=== PATIENT | female | born 1985 | race Caucasian/White ===

== ENCOUNTER 2017-12-06 16:35 | Inpatient (IN) | payer BC ==
[2017-12-06] MEDS ORDERED: BUTORPHANOL TARTRATE 1 MG/ML VIAL IVPB ONE (17:15)
[2017-12-06] MEDS ORDERED: PROMETHAZINE HCL 25 MG/1 ML VIAL IVPUSH ONE (17:15)
[2017-12-06] MEDS ORDERED: TUBERCULIN PPD 5 TU/0.1ML SYRINGE (IN PATIENT USE ONLY) ID ONE (17:30)
[2017-12-06] MEDS ORDERED: DINOPROSTONE 10 MG VAGINAL SUPPOSITORY VG ONE (17:30)
[2017-12-06 17:37] VITALS: BMI 29.2
--- NOTE | 2017-12-06 17:46 | HP ---
Past Medical History - Admission History of Present Illness: Pt is a 32 y/o with SIUP at 40.6 weeks gestation here for scheduled IOL. uncomplicated. Feeling occasional cramps otherwise no complaints. + FM, no VB/LOF. GBS positive. 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 Weeks Gestation by Dates: 40.6 ...EDC by Dates: 11/30/17 ...EDC by Sono: 11/30/17 Heme/Onc: No: Anemia Infectious Disease: No: HIV, MRSA Psych: No: Anxiety, Bipolar, Depression - Past Surgical History Past Surgical History: Yes: None Hx Myomectomy: No Hx Transabdominal Cerclage: No - Smoking History Smoking history: Never smoked Have you smoked in the past 12 months: No - Alcohol/Substance Use Hx Alcohol Use: No History of Substance Use: reports: None - Social History Usual Living Arrangement: Yes: With Spouse ADL: Independent History of Recent Travel: No Home Medications - Allergies Allergies/Adverse Reactions: Allergies Allergy/AdvReac Type Severity Reaction Status Date / Time No Known Allergies Allergy Verified 12/06/17 17:12 - Home Medications Home Medications: Ambulatory Orders Vitamins (Sjr) - 1 tab PO DAILY 12/06/17 Physical Exam - Maternity Vital Signs: Vital Signs Temperature 98.6 F 12/06/17 17:31 Pulse Rate 112 H 12/06/17 17:31 Respiratory Rate 18 12/06/17 17:31 Blood Pressure 113/74 12/06/17 17:31 O2 Sat by Pulse Oximetry (%) Constitutional: Yes: Well Nourished, No Distress, Calm Eyes: Yes: Conjunctiva Clear, EOM Intact HENT: Yes: Atraumatic, Normocephalic Neck: Yes: Supple, Trachea Midline Cardiovascular: Yes: Regular Rate and Rhythm Lungs: Clear to auscultation - Abdominal Exam/OB Number of Fetuses: Single Presentation: Vertex Contractions: Yes Regularity: Irregular Intensity: Mild Category: I Accelerations: Uniform Decelerations: None - Vaginal Exam/OB Vaginal Bleediing: No Dilatation (cm): 1.5 Effacement (%): 50 Amniotic Membrane Status: Intact Presentation: Vertex/Position Station: -2 - Physical Exam Psychiatric: Yes: Alert, Oriented Hemorrhage Risk Assessment - Risk Factors Medium Risk Factors: Yes: None High Risk Factors: Yes: None Risk Score: 1 Risk Level: Medium Risk Problem List - Problems (1) Post-dates Code(s): O48.0 - POST-TERM Qualifiers: Post-term type: 40-42 weeks gestation Qualified Code(s): O48.0 - Post-term (2) Positive GBS test Code(s): B95.1 - STREPTOCOCCUS, GROUP B, CAUSING DISEASES CLASSD ELSWHR Assessment/Plan 32 y/o with SIUP at 40.6 weeks, IOL for late term - AFVSS - FHTS cat 1 - IOL, cervidil placed, to remove in 12 hours then start pitocin - GBS positive, will start ampicillin once active or ROM
[2017-12-06] MEDS ORDERED: AMPICILLIN - 2 GM in SODIUM CHLORIDE 100 ML IVPB ONE (18:00)
[2017-12-06] MEDS: DEXTROSE 5%-LACTATED RINGERS 1,000 ML IV SCH (18:10)
--- NOTE | 2017-12-06 18:29 | PN ---
Ante-Partal Exam - Subjective Subjective: FHR with 2 prolonged decelerations since cervidil placed. IV fluids started and position changed. Pt now currently on left side and FHR improved. Vital Signs: Vital Signs Temperature 98.8 F 12/06/17 18:00 Pulse Rate 101 H 12/06/17 18:00 Respiratory Rate 20 12/06/17 18:00 Blood Pressure 114/72 12/06/17 18:00 O2 Sat by Pulse Oximetry (%) Bleeding: No Headache: No Visual changes: No Right upper quadrant pain: No - Contractions Contractions: Yes Regularity: Regular Intensity: Mild/Mod - Exam during Labor Heart Rate: 130 Variability: Moderate Category: II Monitor Accelerations: Present Monitor Decelerations: Prolonged Exam: Vaginal Dilatation (cm): 2 Effacement (%): 50 Presentation: Vertex Station: -2 - Assessment/Plan Assessment/Plan: Cervidil removed at this time will continue to monitor FHRS with continuous monitoring if FHR ok will restart IOL with pitocin
[2017-12-06 20:06] LABS: BASO % 0.2 % (0-2.0); EOS % 0.3 % (0-4.5); HEMATOCRIT 36.5 % (32.4-45.2); LYMPH % 17.7 % (8-40); MCH 27.4 pg (25.7-33.7); MEAN PLT VOLUME 7.9 fl (7.5-11.1); MONO % 6.9 % (3.8-10.2); NEUT % 74.9 % (42.8-82.8); PLATELET COUNT 322 K/MM3 (134-434); RDW 14.3 % (11.6-15.6); WHITE BLOOD COUNT 11.8 K/mm3 (4.0-10.0)
[2017-12-06 20:16] LABS: INR 0.9 (0.82-1.09); PROTHROMBIN TIME (PATIENT) 10.2 SEC (9.98-11.88)
[2017-12-06 20:32] LABS: ANION GAP 7 (8-16); BLOOD UREA NITROGEN 11 mg/dL (7-18); CALCIUM 8.9 mg/dL (8.5-10.1); CHLORIDE 103 mmol/L (98-107); CO2 26 mmol/L (21-32); CREATININE 0.9 mg/dL (0.55-1.02); GLUCOSE,RANDOM 83 mg/dL (74-106); POTASSIUM 4.1 mmol/L (3.5-5.1); SODIUM 136 mmol/L (136-145)
[2017-12-07] MEDS ORDERED: BUTORPHANOL TARTRATE 1 MG/ML VIAL ONE ×2 (01:09)
[2017-12-07] MEDS ORDERED: PROMETHAZINE HCL 25 MG/1 ML VIAL ONE (01:10)
[2017-12-07] MEDS ORDERED: AMPICILLIN SODIUM 2 GM VIAL ONE ×2 (03:00→03:54)
--- NOTE | 2017-12-07 03:41 | PN ---
Ante-Partal Exam - Subjective Subjective: Pt s/p stadol/phenergan at approx 0115 am. Feeling some discomfort with contractions. Vital Signs: Vital Signs Temperature 98.7 F 12/07/17 02:00 Pulse Rate 73 12/07/17 03:00 Respiratory Rate 20 12/07/17 03:00 Blood Pressure 115/67 12/07/17 03:00 O2 Sat by Pulse Oximetry (%) Headache: No Visual changes: No Right upper quadrant pain: No - Contractions Contractions: Yes Regularity: Irregular Intensity: Mild/Mod - Exam during Labor Variability: Moderate Category: I Monitor Accelerations: Present Monitor Decelerations: None Exam: Vaginal Dilatation (cm): 3-4 Effacement (%): 90 Amniotic Membrane Status: Ruptured (AROM at this examination) Amniotic Fluid: Clear Presentation: Vertex Station: -1 - Assessment/Plan Assessment/Plan: 32 y/o with SIUP at 41 weeks, IOL for late term - FHTS cat 1 - IOL, s/p cervidil now with spontaneous contractions, AROM at this examination - GBS positive, continue ampicillin - continue active management, will start pitocin if no progress at next exam
[2017-12-07] MEDS ORDERED: SIMETHICONE 80 MG TAB.CHEW (FP) ONE (03:50)
[2017-12-07] MEDS: SIMETHICONE 80 MG TAB.CHEW (FP) PO PRN (03:50)
[2017-12-07] MEDS ORDERED: FENTANYL/BUPIVACAINE/NS/PF - PCEA - 50 ML DISP.SYRIN EP ONE ×4 (05:16→19:36)
[2017-12-07] MEDS: FENTANYL/BUPIVACAINE/NS/PF - PCEA - 50 ML DISP.SYRIN EP SCH (05:20)
[2017-12-07] MEDS ORDERED: NALOXONE HCL 0.4 MG/ML VIAL IVPUSH PRN (05:47)
[2017-12-07] MEDS ORDERED: AMPICILLIN SODIUM 1 GM VIAL ONE ×3 (06:58→23:33)
[2017-12-07] MEDS: AMPICILLIN - 1 GM in SODIUM CHLORIDE 100 ML IVPB SCH ×7 (07:00→23:30)
[2017-12-07] MEDS ORDERED: OXYTOCIN 15 UNITS/ LR 250 ML 15 UNIT/250 ML INFUS.BAG IVPB ONE (08:38)
[2017-12-07] MEDS ORDERED: OXYTOCIN 15 UNITS/ LR 250 ML 15 UNIT/250 ML INFUS.BAG IVPB SCH (08:45)
--- NOTE | 2017-12-07 08:59 | PN ---
Ante-Partal Exam - Subjective Subjective: Pt comfortable with epidural. Contractions have spaced out. Vital Signs: Vital Signs Temperature 98.7 F 12/07/17 07:00 Pulse Rate 90 12/07/17 08:45 Respiratory Rate 20 12/07/17 08:45 Blood Pressure 106/69 12/07/17 08:45 O2 Sat by Pulse Oximetry (%) 100 12/07/17 08:45 Bleeding: No Headache: No Visual changes: No Right upper quadrant pain: No - Contractions Contractions: Yes Regularity: Regular Monitor Mode: External - Exam during Labor Variability: Moderate Category: I Monitor Accelerations: Present Monitor Decelerations: None Exam: Vaginal Dilatation (cm): 4 Effacement (%): 90 Presentation: Vertex Station: -1 - Assessment/Plan Assessment/Plan: FHR Cat 1 NO cervical change since last exam to start pitocin continue ampicillin for GBS prophylaxis
[2017-12-07] MEDS ORDERED: OXYTOCIN 30 UNITS in 0.9% NS 30 UNIT/500 ML INFUS.BAG IVPB SCH (10:15)
[2017-12-07] MEDS: PRENATAL VITAMINS W/ FOLIC ACID TABLET (FP) PO SCH (11:05)
--- NOTE | 2017-12-07 19:04 | PN ---
Ante-Partal Exam - Subjective Subjective: Pt on pitocin and has epidural Vital Signs: Vital Signs Temperature 97.8 F 12/07/17 14:00 Pulse Rate 85 12/07/17 18:45 Respiratory Rate 18 12/07/17 18:45 Blood Pressure 114/70 12/07/17 18:45 O2 Sat by Pulse Oximetry (%) 95 12/07/17 18:45 Bleeding: No Headache: No Visual changes: No Right upper quadrant pain: No - Exam during Labor Category: I Monitor Accelerations: Present Monitor Decelerations: None Exam: Vaginal Dilatation (cm): 4-5 Effacement (%): 80 Amniotic Membrane Status: Ruptured Presentation: Vertex Station: 0
[2017-12-07] MEDS ORDERED: OXYTOCIN 20 UNITS in 0.9% NS 20 UNIT/1,000 ML INFUS.BAG IV ONE (21:45)
--- NOTE | 2017-12-08 03:02 | PN ---
Ante-Partal Exam - Subjective Subjective: Pt with pressure Vital Signs: Vital Signs Temperature 98.2 F 12/08/17 02:00 Pulse Rate 90 12/08/17 02:15 Respiratory Rate 20 12/08/17 02:15 Blood Pressure 117/78 12/08/17 02:15 O2 Sat by Pulse Oximetry (%) 100 12/08/17 02:15 - Contractions Monitor Mode: External - Exam during Labor Category: I Monitor Accelerations: Present Monitor Decelerations: None Exam: Vaginal Dilatation (cm): 9 Amniotic Membrane Status: Ruptured Presentation: Vertex - Assessment/Plan Assessment/Plan: 2nd stage of labor plan continue present management
--- NOTE | 2017-12-08 03:09 | PN ---
Ante-Partal Exam - Subjective Subjective: Pt had been pushing 1 1/2 hours with no progress EFM late decels failure to descend Plan repeat CS Vital Signs: Vital Signs Temperature 98.2 F 12/08/17 02:00 Pulse Rate 90 12/08/17 02:15 Respiratory Rate 20 12/08/17 02:15 Blood Pressure 117/78 12/08/17 02:15 O2 Sat by Pulse Oximetry (%) 100 12/08/17 02:15 Bleeding: No Headache: No Visual changes: No Right upper quadrant pain: No - Contractions Contractions: Yes Monitor Mode: External - Exam during Labor Category: II Monitor Accelerations: Present Monitor Decelerations: Late Exam: Vaginal Dilatation (cm): 10 Effacement (%): 100 Amniotic Membrane Status: Ruptured Presentation: Vertex Station: +1 - Assessment/Plan Assessment/Plan: Falure to Decend Cat 2 tracing - late decel with pushing Plan Willl do section
[2017-12-08] MEDS ORDERED: CITRIC ACID/SODIUM CITRATE 30 ML UNIT-DOSE CUP PO ONE (03:12)
[2017-12-08] MEDS ORDERED: oxyCODONE HCL 5 MG TABLET PO PRN ×2 (03:15)
[2017-12-08] MEDS ORDERED: METHYLERGONOVINE MALEATE 0.2 MG/1 ML AMP IM PRN (03:15)
[2017-12-08] MEDS ORDERED: WITCH HAZEL 50% (TUCKS) 40 PAD/JAR PAD TP PRN (03:15)
[2017-12-08] MEDS ORDERED: BENZOCAINE 20% 57 GM BOTTLE TP PRN (03:15)
[2017-12-08] MEDS ORDERED: diphenhydrAMINE HCL 25 MG CAPSULE (FP) PO PRN (03:15)
[2017-12-08] MEDS ORDERED: BENZOCAINE 28 GM HEMORRHOIDAL OINTMENT PR PRN (03:15)
[2017-12-08] MEDS ORDERED: SIMETHICONE 80 MG TAB.CHEW (FP) PO PRN (03:15)
[2017-12-08] MEDS ORDERED: IBUPROFEN 800 MG/8 ML IJ IVPB PRN (03:15)
[2017-12-08] MEDS ORDERED: morphine SULFATE/Preservative Free 0.5 MG/ML (1cc Syringe) ONE ×5 (03:42)
[2017-12-08] MEDS ORDERED: PROPOFOL 20 ML ONE (03:43)
[2017-12-08] MEDS ORDERED: SUCCINYLCHOLINE CHLORIDE 200 MG/10 ML VIAL ONE (03:43)
[2017-12-08] MEDS ORDERED: KETOROLAC TROMETHAMINE 30 MG/1 ML VIAL ONE (03:52)
[2017-12-08] MEDS ORDERED: ceFAZolin SODIUM 1 GM VIAL ONE (03:57)
[2017-12-08] MEDS ORDERED: SODIUM CHLORIDE 0.9% P/F 10 ML VIAL IJ ONE ×2 (03:57→04:05)
[2017-12-08] MEDS ORDERED: MIDAZOLAM HCL 2 MG/2 ML SINGLE DOSE VIAL ONE (04:06)
[2017-12-08] MEDS ORDERED: METOPROLOL TARTRATE 5 MG/5 ML VIAL ONE (04:09)
[2017-12-08] MEDS ORDERED: ePHEDrine SULFATE 50 MG/1 ML AMPULE ONE (04:15)
[2017-12-08] MEDS ORDERED: ONDANSETRON 4 MG/2 ML VIAL IVPUSH PRN (04:38)
--- NOTE | 2017-12-08 04:39 | OP ---
Operative Note - Note: Operative Date: 12/08/17 Pre-Operative Diagnosis: Failure to Descend Operation: Low transverse Section Findings: normal tubes and ovaries Post-Operative Diagnosis: Same as Pre-op Surgeon: Nallely Greenfield Detention Officer: Jonathon Melendez Anesthesiologist/DEDICATED REGIONAL DRIVER: José Luis Dickinson Anesthesia: Epidural Estimated Blood Loss (mls): 600 Operative Report Dictated: Yes
[2017-12-08] MEDS ORDERED: OXYTOCIN 20 UNITS in 0.9% NS 20 UNIT/1,000 ML INFUS.BAG IV ONE ×2 (05:19→07:53)
[2017-12-08 06:18] LABS: VENOUS PC02 46.9 mmHg (38-52); VENOUS PH 7.32 (7.32-7.42); VENOUS PO2 28.2 mmHg (28-48)
[2017-12-08] MEDS: D5W-LR W/ 20 UNITS OXYTOCIN 20 UNIT/1,000 ML INFUS.BAG IV SCH (07:55)
[2017-12-08] MEDS: PRENATAL VITAMINS W/ FOLIC ACID TABLET (FP) PO SCH (10:15)
[2017-12-08] MEDS: AMPICILLIN - 1 GM in SODIUM CHLORIDE 100 ML IVPB SCH (10:21)
[2017-12-08] MEDS: FENTANYL/BUPIVACAINE/NS/PF - PCEA - 50 ML DISP.SYRIN EP SCH (10:22)
--- NOTE | 2017-12-08 13:36 | OP ---
DATE OF OPERATION: 12/08/2017 PREOPERATIVE DIAGNOSIS: Failure to descend. OPERATION: Primary low-transverse section. POSTOPERATIVE DIAGNOSES: Failure to descend and live female infant. SURGEON: Nallely Greenfield MD ANALYSIS EVALUATOR: MADHURI Rosenbaum ( unavailable) ANESTHESIA: Epidural. ANESTHESIOLOGIST: . PROCEDURE: Patient was taken to the operating room, placed in the supine position, prepped and draped in the usual sterile fashion. After epidural anesthesia had been given, timeout was performed in accordance with hospital regulation. Pfannenstiel skin incision was made. Cautery was then used to go through the layers of the abdominal wall toward the fascia. Fascia was cut in midline and cautery was then used to open the fascia in smiling fashion. Zulma was then used to bluntly and sharply dissect the rectus muscle off the fascia. Muscle was split in the midline. Peritoneal cavity was then entered and carried upward and downward. Bladder retractor was then placed. Vesicouterine reflection was then entered and bladder was bluntly dissected out of the operative field. Scalpel was then used to make a low-transverse uterine incision. Incision was carried upward using bandage scissors. A live female infant was delivered in OT position. Nose and mouth suction performed. Shoulders were delivered without difficulty. Cord was clamped and cut, cord blood obtained. Placenta was manually extracted from the uterus. Cord pH obtained. Delayed cord clamping was done and infant was handed to the boxing machine operator. Hemostasis was achieved. Uterine incision was then closed using 0 Biosyn suture, 1st layer continuous locking, 2nd layer imbricating the 1st layer. Hemostasis was achieved using figure-of-8 sutures. Uterus interiorized. Abdominal cavity cleaned with clean lap pads. The peritoneum was then closed using 0 Biosyn suture in continuous fashion. Fascia was then closed using 0 Vicryl suture in 2 parts continuous. Subcutaneous was closed using 0 Biosyn suture. Skin was then closed using 3-0 Vicryl in subcuticular fashion. Wound was washed and dressed. Patient tolerated the procedure well, was taken to recovery in stable condition. Tubes and ovaries were noted to be normal. Abdominal sweep was done. ESTIMATED BLOOD LOSS: 600 mL. Rebekah TUBBS/[id number]
[2017-12-08] MEDS: DEXTROSE 5%-LACTATED RINGERS 1,000 ML IV SCH (17:59)
[2017-12-09] MEDS ORDERED: BISACODYL 10 MG SUPP.RECT PR PRN (03:15)
[2017-12-09] MEDS: IBUPROFEN 600 MG TABLET (FP) PO PRN ×3 (05:18→15:42)
[2017-12-09] MEDS: ACETAMINOPHEN 325 MG TABLET (FP) PO PRN ×3 (05:18→15:42)
[2017-12-09] MEDS: SIMETHICONE 80 MG TAB.CHEW (FP) PO PRN ×3 (05:19→15:42)
--- NOTE | 2017-12-09 07:13 | PN ---
Progress Note (SOAP) - Subjective Chief Complaint: Pt doing well - Current Medications Current Medications: Active Medications Acetaminophen (Tylenol -) 650 mg PO Q4H PRN PRN Reason: FEVER Last Admin: 12/09/17 05:18 Dose: 650 mg Benzocaine (Americaine 20% [place] -) 1 spray TP PRN PRN PRN Reason: PAIN Benzocaine (Americaine Ointment -) 1 applic LA PRN PRN PRN Reason: PAIN Bisacodyl (Dulcolax Suppository -) 10 mg LA PRN PRN PRN Reason: CONSTIPATION Diphenhydramine HCl (Benadryl -) 25 mg PO Q6H PRN PRN Reason: FOR ITCHING Dextrose/Lactated Ringer's (D5-Lr -) 1,000 mls @ 125 mls/hr IV ASDIR DEJA Last Admin: 12/08/17 17:59 Dose: 125 mls/hr Oxytocin/Sodium Chloride (Normal Saline+30 Units Oxytocin) 30 unit in 500 mls @ 1 mls/hr IVPB TITR DEJA; 0.06 UNIT/HR PRN Reason: Protocol Last Titration: 12/07/17 19:30 Dose: 0.36 unit/hr, 6 mls/hr Dextrose/Lactated Ringer's (Pitocin 20 Units In D5-Lr -) 20 unit in 1,000 mls @ 125 mls/hr IV ASDIR DEJA Last Admin: 12/08/17 07:55 Dose: 125 mls/hr Ibuprofen (Caldolor Injection -) 800 mg IVPB Q6H PRN PRN Reason: FEVER Last Admin: 12/08/17 14:26 Dose: 800 mg Ibuprofen (Motrin -) 600 mg PO Q4H PRN PRN Reason: PAIN Last Admin: 12/09/17 05:18 Dose: 600 mg Methylergonovine Maleate (Methergine Injection -) 0.2 mg IM Q4H PRN PRN Reason: EXCESSIVE BLEEDING Naloxone HCl (Narcan -) 0.4 mg IVPUSH PRN PRN PRN Reason: Sedation Ondansetron HCl (Zofran Injection) 4 mg IVPUSH Q4H PRN PRN Reason: NAUSEA Oxycodone HCl (Roxicodone -) 5 mg PO Q4H PRN PRN Reason: PAIN LEVEL 1-5 Oxycodone HCl (Roxicodone -) 10 mg PO Q4H PRN PRN Reason: PAIN LEVEL 6-10 Multivit/Folic Acid/Iron ( Vitamins (Sjr) -) 1 tab PO DAILY [facility] Last Admin: 12/08/17 10:15 Dose: Not Given Senna/Docusate Sodium (Pericolace -) 2 tablet PO HS PRN PRN Reason: CONSTIPATION Simethicone (Mylicon -) 80 mg PO Q4H PRN PRN Reason: GAS Last Admin: 12/09/17 05:19 Dose: 80 mg Simethicone (Mylicon -) 80 mg PO Q4H PRN PRN Reason: GAS Witch Claribel/Glycerin (Tucks Pads -) 1 pad TP PRN PRN PRN Reason: PAIN - Objective Vital Signs: Vital Signs Temperature 97.3 F L 12/09/17 02:00 Pulse Rate 88 12/09/17 02:00 Respiratory Rate 20 12/09/17 04:00 Blood Pressure 99/53 12/09/17 02:00 O2 Sat by Pulse Oximetry (%) 98 12/08/17 07:41 Constitutional: Yes: Well Nourished, No Distress Cardiovascular: Yes: WNL Gastrointestinal: Yes: WNL ....Post : Yes: Uterus firm, Uterus non-tender Musculoskeletal: Yes: WNL Extremities: Yes: WNL Edema: No Wound/Incision: Yes: Clean/Dry, Dressing Dry and Intact Psychiatric: Yes: WNL, Alert, Oriented Labs Lab Results: CBC, BMP 12/06/17 18:30 12/06/17 18:30 Assessment/Plan POD 1 Failure to descend Stable PLan OOB Ambulate
--- NOTE | 2017-12-09 08:04 | PN ---
Post Progress Note Post Day: 1 Type of Delivery: Primary C/S Vital Signs: Vital Signs Temperature 97.6 F 12/09/17 07:44 Pulse Rate 87 12/09/17 07:44 Respiratory Rate 20 12/09/17 07:44 Blood Pressure 100/57 12/09/17 07:44 O2 Sat by Pulse Oximetry (%) 98 12/08/17 07:41 Breast Exam: Yes: Soft Uterus: Yes: Fundus Firm Incision: Yes: Dressing dry and intact Abdomen/GI: Yes: Abdomen soft Lochia: Yes: Rubra Lochia, amount: Moderate Extremities: Yes: Calves non-tender - Labs Labs: CBC WBC 11.8 K/mm3 (4.0-10.0) H 12/06/17 18:30 RBC 4.40 M/mm3 (3.60-5.2) 12/06/17 18:30 Hgb 12.0 GM/dL (10.7-15.3) 12/06/17 18:30 Hct 36.5 % (32.4-45.2) 12/06/17 18:30 MCV 83.0 fl (80-96) 12/06/17 18:30 MCH 27.4 pg (25.7-33.7) 12/06/17 18:30 MCHC 33.0 g/dl (32.0-36.0) 12/06/17 18:30 RDW 14.3 % (11.6-15.6) 12/06/17 18:30 Plt Count 322 K/MM3 (134-434) 12/06/17 18:30 MPV 7.9 fl (7.5-11.1) 12/06/17 18:30 Neutrophils % 74.9 % (42.8-82.8) 12/06/17 18:30 Lymphocytes % 17.7 % (8-40) 12/06/17 18:30 Monocytes % 6.9 % (3.8-10.2) 12/06/17 18:30 Eosinophils % 0.3 % (0-4.5) 12/06/17 18:30 Basophils % 0.2 % (0-2.0) 12/06/17 18:30 Assessment/Plan s/p section day1 ,condition stable. plan to continue postoperative care advance diet and activities
[2017-12-09 08:46] LABS: HEMATOCRIT 24.5 % (32.4-45.2); MCH 27.5 pg (25.7-33.7); MCHC 32.7 g/dl (32.0-36.0); MEAN CELL VOLUME 84.3 fl (80-96); MEAN PLT VOLUME 7.2 fl (7.5-11.1); PLATELET COUNT 234 K/MM3 (134-434); RBC 2.91 M/mm3 (3.60-5.2); RDW 14.7 % (11.6-15.6)
[2017-12-09] MEDS: PRENATAL VITAMINS W/ FOLIC ACID TABLET (FP) PO SCH (09:12)
--- NOTE | 2017-12-09 10:32 | PN ---
Progress Note (short form) - Note Progress Note: Pt day #1 s/p csection. No ADDISON, no back pain, able to ambulate with minimal pain. continue current care
[2017-12-10] MEDS: ACETAMINOPHEN 325 MG TABLET (FP) PO PRN ×4 (00:50→19:20)
[2017-12-10] MEDS: SIMETHICONE 80 MG TAB.CHEW (FP) PO PRN ×4 (00:50→19:22)
[2017-12-10] MEDS: IBUPROFEN 600 MG TABLET (FP) PO PRN ×4 (00:51→19:21)
--- NOTE | 2017-12-10 07:01 | PN ---
Post Note - Post Date of Delivery: 12/08/17 Vital Signs: Vital Signs - 24 hr 12/09/17 12/09/17 07:44 21:21 Temperature 97.6 F 97.4 F L Pulse Rate 87 95 H Respiratory 20 20 Rate Blood Pressure 100/57 95/73 Labs: Laboratory Results - last 24 hr 12/09/17 08:00 WBC 21.0 H D RBC 2.91 L D Hgb 8.0 L D Hct 24.5 L D MCV 84.3 MCH 27.5 MCHC 32.7 RDW 14.7 Plt Count 234 D MPV 7.2 L - Subjective Subjective: No Nausea or vomiting - Objective Afebrile: No Breast: Not engorged Abdomen: Soft Uterus: Fundus firm Vagina: Scant lochia Extremities: Non-tender - Assessment/Plan (1) delivery delivered Assessment: Other (pod 1) Plan: Routine Care
[2017-12-10] MEDS: DEXTROSE 5%-LACTATED RINGERS 1,000 ML IV SCH (09:10)
[2017-12-10] MEDS: D5W-LR W/ 20 UNITS OXYTOCIN 20 UNIT/1,000 ML INFUS.BAG IV SCH (09:11)
[2017-12-10] MEDS: PRENATAL VITAMINS W/ FOLIC ACID TABLET (FP) PO SCH (09:14)
[2017-12-10] MEDS ORDERED: SENNOSIDES/DOCUSATE COMBO (SENNA PLUS) TABLET (UD) PO PRN (22:00)
[2017-12-11] MEDS: IBUPROFEN 600 MG TABLET (FP) PO PRN ×2 (01:32→09:12)
[2017-12-11] MEDS: ACETAMINOPHEN 325 MG TABLET (FP) PO PRN ×2 (01:32→09:11)
[2017-12-11] MEDS: SIMETHICONE 80 MG TAB.CHEW (FP) PO PRN ×2 (01:33→09:12)
[2017-12-11 07:24] LABS: HEMOGLOBIN 7.9 GM/dL (10.7-15.3); MCH 27.6 pg (25.7-33.7); MCHC 33.1 g/dl (32.0-36.0); MEAN CELL VOLUME 83.3 fl (80-96); MEAN PLT VOLUME 6.8 fl (7.5-11.1); PLATELET COUNT 325 K/MM3 (134-434); RBC 2.88 M/mm3 (3.60-5.2); RDW 14.4 % (11.6-15.6); WHITE BLOOD COUNT 12.6 K/mm3 (4.0-10.0)
--- NOTE | 2017-12-11 08:36 | DS ---
Physical Exam-CLINIC CLERK Vital Signs: Vital Signs Temperature 97.7 F 12/10/17 21:10 Pulse Rate 84 12/10/17 21:10 Respiratory Rate 20 12/10/17 21:10 Blood Pressure 108/50 12/10/17 21:10 O2 Sat by Pulse Oximetry (%) 98 12/08/17 07:41 Constitutional: Yes: Well Nourished Eyes: Yes: WNL HENT: Yes: WNL Neck: Yes: Supple Cardiovascular: Yes: Regular Rate and Rhythm Respiratory: Yes: Regular Gastrointestinal: Yes: Normal Bowel Sounds External Genitalia: Yes: Normal Cervix: Yes: Normal Uterus: Yes: Firm Wound/Incision: Yes: Well Approximated Neurological: Yes: Alert, Oriented Psychiatric: Yes: Alert, Oriented Labs: CBC, BMP 12/11/17 07:00 12/06/17 18:30 Delivery - Delivery Section: Primary Type of Anesthesia: Epidural Episiotomy/Laceration: None EBL (cc): 600 Delivery, Single - Stages of Labor Date 1st Stage Initiatied: 12/07/17 Time 1st Stage Initiated: :15 Date of Delivery: 12/08/17 Time of Delivery: 04:02 Time Placenta Delivered: 04:03 - Condition of Edger Technician/Hide Tanner Present: Yes Name: Anthony Keene Infant Gender: Female Weight: 7 lb 4 oz Position: Left, OA Total Hours ROM (Hrs/Mins): 24 HOURS/ 19 MINUTES - 1 Minute Total Score: 9 5 Minutes Total Score: 9 - Feeding Plan Initial Plan: Exclusive throughout hospitalization Discharge Summary Reason For Visit: INDUCTION OF LABOR Current Active Problems delivery delivered (Acute) Positive GBS test (Acute) Post-dates (Acute) Procedures: Principal: Primary Low Transverse Hospital Course: Routine post op care Condition: Good - Instructions Diet, Activity, Other Instructions: Physical activity Resume your normal everyday activity as tolerated no heavy lifting or exercise until seen by your surgeon. You may walk unlimited maria de jesus of and climb stairs. You may resume driving the car when you feel safe and comfortable behind the wheel. No sexual activity as instructed. Wound care If you have a bandage, leave it on, and keep dry for 48-72 hours. After that time discard the outer bandage. If they are tapes on the skin under the out of bandage leave them in place. They will peel off in the next 7 to 10 days. Do Not Peel them off. You may shower the day after surgery. If there are tapes present on the skin, you may shower over them. Diet There are no dietary restrictions. Eat healthy, high-fiber foods. Drink 6 to 8 glasses of liquid each day. This will assist in keeping your bowels are regular. Pain management You may take Tylenol or acetaminophen or Ibuprofen (for example, Motrin, Advil etc.) from my pain prescription medication is ordered should be taken as prescribed for moderate to severe pain. Call MD for any of the following: Severe pain not relieved by medication Fever of 101 or higher Excessive bleeding or drainage on dressing Inability to urinate Referrals: Nallely Greenfield MD [Staff Physician] - Disposition: HOME - Home Medications Comprehensive Discharge Medication List: Ambulatory Orders Vitamins (Sjr) - 1 tab PO DAILY 12/06/17 Ibuprofen [Motrin -] 600 mg PO QID PRN #28 tablet 12/08/17 Oxycodone HCl/Acetaminophen [Percocet 5-325 mg Tablet -] 1 tab PO Q4H #20 tablet MDD 6 12/08/17
[2017-12-11 08:48] VITALS: BP 116/76; PULSE 74; TEMP 98
[2017-12-11] MEDS: PRENATAL VITAMINS W/ FOLIC ACID TABLET (FP) PO SCH (09:08)
--- NOTE | 2017-12-14 13:53 | PATH ---
Surgical Pathology Report Patient Name: JOSE HANSON Med. Rec. 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 Specimen(s) Received PLACENTA Clinical History 32-year-old female , 41 weeks induction. No surgical history. Medical history of migraines Final Diagnosis PLACENTA, SECTION: 343 g THIRD TRIMESTER PLACENTA WITH TRIVASCULAR UMBILICAL CORD AND MILD TO MODERATE CHORIOAMNIONITIS. Electronically Signed Carola Marte M.D. Gross Description The specimen is received fresh labeled placenta and is a 343 gram, 15.0 x 12.0 x 2.3 cm. placenta with attached membranes and umbilical cord. The attached membranes are delatorre, translucent with focal opacities and insert marginally. The umbilical cord measures 11 cm. in length and averages 1 cm. in diameter. The cord inserts eccentrically, 4.5 cm. to the nearest margin. No true knots or strictures are identified. Cut surface of the umbilical cord reveals 3 vessels. The surface is mercado-blue with minimal fibrin deposition and appropriate caliber vessels. The maternal surface is red-brown with focal defects. Sectioning reveals red-brown, spongy parenchyma. No lesions are identified. Auto Body Worker sections are submitted in three cassettes as follows: 1- membrane rolls and umbilical cord; 2-3- full thickness sections of placenta. /12/12/2017 [facility]12/12/2017
== END 2017-12-11 13:10 | disposition home or self-care (01) | DRG 766 ==
LOC: JLDR 16:35 → J3W 12-08 08:30
PROVIDERS: ADMIT Obstetrics & Gynecology; ATTEND Obstetrics & Gynecology
PROC: 3E0P7VZ Introduction of Hormone into Female Reproductive, Via Natural or Artificial Opening (ICD-10-PCS; 2017-12-06)
PROC: 10D00Z1 Extraction of Products of Conception, Low, Open Approach (ICD-10-PCS; principal; 2017-12-08)
DX: O62.1 Secondary uterine inertia (principal); Z3A.40 40 weeks gestation of pregnancy; Z22.330 Carrier of Group B streptococcus; O48.0 Post-term pregnancy; Z37.0 Single live birth
CPT/HCPCS: 36415; 80048; 82803; 85025; 85027; 85610; 85730; 86593; 86850; 86900; 86901; 88307-TC

== ENCOUNTER 2017-12-24 02:49 | Emergency (ER) | payer BC ==
[2017-12-24 03:18] VITALS: BMI 25.2
--- NOTE | 2017-12-24 03:27 | PDOC ---
History of Present Illness - General History Source: Patient Exam Limitations: No Limitations - History of Present Illness Initial Comments: 12/24/17 05:40 Patient is a 32 year old female with a significant past medical history of who presents to the ED with complaints of diffuse abdominal pain. Patient reports experiencing lower left back pain that began suddenly while at home. She reports taking 3 doses of tylenol for pain with minimal relief. Patient does not rate abdominal pain on scale but states it was intense enough to wake her from sleep. She reports lower abdominal pain initiates around superpubic area and wraps around her flanks into her bilateral lower back. Denies chest pain, Sob. Denies nausea, vomiting. Denies fevers, chills. Denies constipation, diarrhea, dysuria, hematuria. Denies any other symptoms. Allergies: None Social history: No smoking. No alcohol. No illicit drugs. Surgical history: . PMD: Dr. Mcgarry <Charlie Barrera - Last Filed: 12/24/17 05:40> <Radha Bernabe - Last Filed: 12/26/17 15:36> - General Chief Complaint: Back Pain Stated Complaint: PAIN/ POST SURGERY Time Seen by Provider: 12/24/17 03:00 Past History <Charlie Barrera - Last Filed: 12/24/17 05:40> - Past Medical History Anemia: Yes Asthma: No Cancer: No Cardiac Disorders: No COPD: No Diabetes: No HTN: No Seizures: No Thyroid Disease: No - Suicide/Smoking/Psychosocial Hx Smoking History: Never smoked Have you smoked in the past 12 months: No Information on smoking cessation initiated: No Hx Alcohol Use: No Drug/Substance Use Hx: No Substance Use Type: None Hx Substance Use Treatment: No <Radha Bernabe - Last Filed: 12/26/17 15:36> - Past Medical History Allergies/Adverse Reactions: Allergies Allergy/AdvReac Type Severity Reaction Status Date / Time No Known Allergies Allergy Verified 12/24/17 04:05 Home Medications: Ambulatory Orders Vitamins (Sjr) - 1 tab PO DAILY 12/06/17 Acetaminophen [Tylenol .Regular Strength -] 325 mg PO Q4H 12/24/17 Cephalexin Monohydrate [Keflex -] 500 mg PO Q8H #30 capsule 12/24/17 Review of Systems - Review of Systems Able to Perform ROS?: Yes Comments:: 12/24/17 05:41 GENERAL/CONSTITUTIONAL: No fever or chills. No weakness. HEAD, EYES, EARS, NOSE AND THROAT: No change in vision. No ear pain or discharge. No sore throat. CARDIOVASCULAR: No chest pain or shortness of breath. RESPIRATORY: No cough, wheezing, or hemoptysis. GASTROINTESTINAL: +Abdominal pain. No nausea, vomiting, diarrhea or constipation. GENITOURINARY: No dysuria, frequency, or change in urination. MUSCULOSKELETAL: +Bilateral lower back pain. No joint or muscle swelling or pain. No neck SKIN: No rash NEUROLOGIC: No headache, vertigo, loss of consciousness, or change in strength/ sensation. ENDOCRINE: No increased thirst. No abnormal weight change. HEMATOLOGIC/LYMPHATIC: No anemia, easy bleeding, or history of blood clots. ALLERGIC/IMMUNOLOGIC: No hives or skin allergy. All Other Systems: Reviewed and Negative <Charlie Barrera - Last Filed: 12/24/17 05:40> *Physical Exam - Vital Signs Last Vital Signs Temp Pulse Resp BP Pulse Ox 98.2 F 80 18 123/79 99 12/24/17 03:14 12/24/17 04:05 12/24/17 03:14 12/24/17 04:05 12/24/17 04:05 - Physical Exam Comments: 12/24/17 05:41 GENERAL: Awake, alert, and fully oriented, in no acute distress HEAD: No signs of trauma EYES: PERRLA, EOMI, sclera anicteric, conjunctiva clear ENT: Auricles normal inspection, hearing grossly normal, nares patent, oropharynx clear without exudates. Moist mucosa NECK: Normal ROM, supple, no lymphadenopathy, JVD, or masses LUNGS: Breath sounds equal, clear to auscultation bilaterally. No wheezes, and no crackles HEART: Regular rate and rhythm, normal S1 and S2, no murmurs, rubs or gallops ABDOMEN: +Right flank tenderness with palpation more than percussion. +Diffuse abdominal tenderness. Soft, nontender, normoactive bowel sounds. No guarding, no rebound. No masses EXTREMITIES: Normal range of motion, no edema. No clubbing or cyanosis. No cords, erythema, or tenderness NEUROLOGICAL: Cranial nerves II through XII grossly intact. Normal speech, normal gait SKIN: Warm, Dry, normal turgor, no rashes or lesions noted. <HollyCharlie - Last Filed: 12/24/17 05:40> - Vital Signs Last Vital Signs Temp Pulse Resp BP Pulse Ox 98.2 F 88 18 120/88 100 12/24/17 03:14 12/24/17 03:14 12/24/17 03:14 12/24/17 03:14 12/24/17 03:14 <Radha Bernabe - Last Filed: 12/26/17 15:36> ED Treatment Course - LABORATORY CBC & Chemistry Diagram: 12/24/17 03:54 12/24/17 03:54 - ADDITIONAL ORDERS Additional order review: Laboratory Results 12/24/17 12/24/17 12/24/17 03:54 03:54 03:54 PT with INR 10.80 INR 0.96 PTT (Actin FS) Sodium 139 Potassium 4.2 Chloride 105 Carbon Dioxide 27 Anion Gap 7 L BUN 18 Creatinine 1.2 H Creat Clearance w eGFR 52.75 Random Glucose 94 Calcium 9.5 Total Bilirubin 0.2 AST 20 ALT 27 Alkaline Phosphatase 163 H Total Protein 7.3 Albumin 3.5 Blood Type B POSITIVE Antibody Screen Negative 12/24/17 03:54 PT with INR INR PTT (Actin FS) 28.4 Sodium Potassium Chloride Carbon Dioxide Anion Gap BUN Creatinine Creat Clearance w eGFR Random Glucose Calcium Total Bilirubin AST ALT Alkaline Phosphatase Total Protein Albumin Blood Type Antibody Screen 12/24/17 03:54 RBC 4.24 D MCV 83.1 MCHC 32.5 RDW 14.1 MPV 6.7 L Neutrophils % 85.0 H Lymphocytes % 9.6 D Monocytes % 4.6 Eosinophils % 0.2 Basophils % 0.6 - Medications Given in the ED: ED Medications Discontinued Medications Generic Name Dose Route Start Last Admin Trade Name Freq PRN Reason Stop Dose Admin Acetaminophen 1,000 mg 12/24/17 04:07 12/24/17 04:21 Ofirmev Injection - IVPB 12/24/17 04:08 1,000 mg ONCE ONE Administration Famotidine/Sodium Chloride 20 mg in 50 mls @ 100 mls/hr 12/24/17 03:47 05:15 Pepcid 20 Mg Premixed Ivpb - IVPB 12/24/17 04:16 100 mls/hr ONCE ONE Administration Lactulose 20 gm 12/24/17 04:35 12/24/17 05:15 Cephulac (Oral Use) PO 12/24/17 04:36 20 gm ONCE ONE Administration Sodium Chloride 1,000 ml 12/24/17 03:29 12/24/17 04:01 Normal Saline - IV 12/24/17 03:30 1,000 ml ONCE ONE Administration <Charlie Barrera - Last Filed: 12/24/17 05:40> - LABORATORY CBC & Chemistry Diagram: 12/24/17 03:54 12/24/17 03:54 <Radha Bernabe - Last Filed: 12/26/17 15:36> Medical Decision Making - Medical Decision Making 12/24/17 04:50 Pt's Hb/HCT are improving. However her WBC is elevated and her platelet count is 600s. 12/24/17 05:50 Pt has an abd XR that is normal. However I will get a CT scan , as I dont want to miss and infectious colitis. 12/24/17 05:53 SHe will be signed out to the day team, as her CT will be taken at 7:20. <Radha Bernabe - Last Filed: 12/26/17 15:36> *DC/Admit/Observation/Transfer - Attestations Scribe Attestion: 12/24/17 05:41 Documentation prepared by Charlie Barrera, acting as medical office asst for Radha Bernabe MD/DO. <Charlie Barrera - Last Filed: 12/24/17 05:40> <Radha Bernabe - Last Filed: 12/26/17 15:36> Diagnosis at time of Disposition: Renal colic on left side - Discharge Dispostion Disposition: HOME Condition at time of disposition: Improved - Prescriptions Prescriptions: Cephalexin Monohydrate [Keflex -] 500 mg PO Q8H #30 capsule - Referrals Referrals: Keturah Mcgarry MD [Primary Care Provider] - Kojo Cox MD [Staff Physician] - - Patient Instructions Printed Discharge Instructions: DI for Kidney Stones Additional Instructions: Activity as tolerated. Stay hydrated. A CAT scan shows a kidney stone on the left side, which is the cause of your pain. This should pass on its own as it is small (3mm). Tylenol 1000 mg every 8 hours as needed for pain. Continue your medications as previously prescribed by your physician. You should follow up with your primary doctor and a urologist (consider calling Dr. Cox) as soon as possible regarding today's emergency department visit. Return to the emergency department for any new or concerning symptoms, particularly persistent or intolerable pain, fever/chills, difficulty urinating , flank pain, increased vaginal bleeding or discharge. - Post Discharge Activity
[2017-12-24] MEDS ORDERED: SODIUM CHLORIDE 0.9% 1000 ML INFUS.BAG IV ONE (03:29)
[2017-12-24] MEDS ORDERED: FAMOTIDINE 20 MG/50 ML IVPB 20 MG/50 ML MG IVPB ONE ×2 (03:47→05:11)
[2017-12-24 04:02] LABS: BASO % 0.6 % (0-2.0); EOS % 0.2 % (0-4.5); HEMATOCRIT 35.2 % (32.4-45.2); HEMOGLOBIN 11.5 GM/dL (10.7-15.3); LYMPH % 9.6 % (8-40); MCHC 32.5 g/dl (32.0-36.0); MEAN CELL VOLUME 83.1 fl (80-96); MEAN PLT VOLUME 6.7 fl (7.5-11.1); MONO % 4.6 % (3.8-10.2); PLATELET COUNT 620 K/MM3 (134-434); RBC 4.24 M/mm3 (3.60-5.2); RDW 14.1 % (11.6-15.6); WHITE BLOOD COUNT 16.6 K/mm3 (4.0-10.0)
[2017-12-24] MEDS ORDERED: ACETAMINOPHEN 1000 MG/100 ML VIAL (NON FORMULARY) IVPB ONE (04:07)
[2017-12-24] MEDS ORDERED: ACETAMINOPHEN INJECTION 100 ML IVPB ONE (04:07)
[2017-12-24 04:18] LABS: INR 0.96 (0.82-1.09); PROTHROMBIN TIME (PATIENT) 10.8 SEC (9.98-11.88)
[2017-12-24 04:27] LABS: ALBUMIN 3.5 g/dl (3.4-5.0); ALK PHOS 163 U/L (45-117); ANION GAP 7 (8-16); BILIRUBIN,TOTAL 0.2 mg/dL (0.2-1.0); BLOOD UREA NITROGEN 18 mg/dL (7-18); CALCIUM 9.5 mg/dL (8.5-10.1); CHLORIDE 105 mmol/L (98-107); CO2 27 mmol/L (21-32); CREATININE 1.2 mg/dL (0.55-1.02); GLUCOSE,RANDOM 94 mg/dL (74-106); POTASSIUM 4.2 mmol/L (3.5-5.1); SGOT/AST 20 U/L (15-37); SGPT/ALT 27 U/L (12-78); SODIUM 139 mmol/L (136-145); TOT PROT 7.3 g/dl (6.4-8.2)
[2017-12-24] MEDS ORDERED: LACTULOSE 20 GM/30 ML UDC (FOR ORAL USE ONLY) PO ONE (04:35)
[2017-12-24] MEDS ORDERED: LACTULOSE 20 GM/30 ML UDC (FOR ORAL USE ONLY) ONE (05:11)
--- NOTE | 2017-12-24 08:34 | PDOC ---
*Physical Exam - Vital Signs Last Vital Signs Temp Pulse Resp BP Pulse Ox 98.3 F 74 18 108/73 100 12/24/17 06:44 12/24/17 06:44 12/24/17 06:44 12/24/17 06:44 12/24/17 06:44 <Tish Edmond - Last Filed: 12/24/17 10:44> - Vital Signs Last Vital Signs Temp Pulse Resp BP Pulse Ox 98.3 F 74 18 108/73 100 12/24/17 06:44 12/24/17 06:44 12/24/17 06:44 12/24/17 06:44 12/24/17 06:44 - Physical Exam Comments: 12/24/17 08:30 Afebrile. Soft/nondistended. Tender with guarding in the lower abdomen around and otherwise well-healed scar, no tenderness in the upper abdomen but there is rebound to the lower abdomen. <Jorge Pandya - Last Filed: 12/24/17 12:25> ED Treatment Course - LABORATORY CBC & Chemistry Diagram: 12/24/17 03:54 12/24/17 03:54 - ADDITIONAL ORDERS Additional order review: Laboratory Results 12/24/17 12/24/17 12/24/17 03:54 03:54 03:54 PT with INR 10.80 INR 0.96 PTT (Actin FS) Sodium 139 Potassium 4.2 Chloride 105 Carbon Dioxide 27 Anion Gap 7 L BUN 18 Creatinine 1.2 H Creat Clearance w eGFR 52.75 Random Glucose 94 Calcium 9.5 Total Bilirubin 0.2 AST 20 ALT 27 Alkaline Phosphatase 163 H Total Protein 7.3 Albumin 3.5 Blood Type B POSITIVE Antibody Screen Negative 12/24/17 03:54 PT with INR INR PTT (Actin FS) 28.4 Sodium Potassium Chloride Carbon Dioxide Anion Gap BUN Creatinine Creat Clearance w eGFR Random Glucose Calcium Total Bilirubin AST ALT Alkaline Phosphatase Total Protein Albumin Blood Type Antibody Screen 12/24/17 03:54 RBC 4.24 D MCV 83.1 MCHC 32.5 RDW 14.1 MPV 6.7 L Neutrophils % 85.0 H Lymphocytes % 9.6 D Monocytes % 4.6 Eosinophils % 0.2 Basophils % 0.6 - RADIOLOGY Radiograph Interpretation: 12/24/17 10:44 CT of abdomen and pelvis, read and reviewed by Dr. Dumont. Impression: 3 mm nonobstructing left renal stone and 3 mm obstructing stone at the left uterovesical junction with mild left hydrouteronephrosis. Enlarged uterus for which correlation with pelvic US is needed. No free air or free fluid in the abdomen and pelvis. - Medications Given in the ED: ED Medications Discontinued Medications Generic Name Dose Route Start Last Admin Trade Name Wong PRN Reason Stop Dose Admin Acetaminophen 1,000 mg 12/24/17 04:07 12/24/17 04:21 Ofirmev Injection - IVPB 12/24/17 04:08 1,000 mg ONCE ONE Administration Famotidine/Sodium Chloride 20 mg in 50 mls @ 100 mls/hr 12/24/17 03:47 05:15 Pepcid 20 Mg Premixed Ivpb - IVPB 12/24/17 04:16 100 mls/hr ONCE ONE Administration Lactulose 20 gm 12/24/17 04:35 12/24/17 05:15 Cephulac (Oral Use) PO 12/24/17 04:36 20 gm ONCE ONE Administration Sodium Chloride 1,000 ml 12/24/17 03:29 12/24/17 04:01 Normal Saline - IV 12/24/17 03:30 1,000 ml ONCE ONE Administration <Tish Edmond - Last Filed: 12/24/17 10:44> - LABORATORY CBC & Chemistry Diagram: 12/24/17 03:54 12/24/17 03:54 - ADDITIONAL ORDERS Additional order review: Laboratory Results 12/24/17 12/24/17 12/24/17 03:54 03:54 03:54 PT with INR 10.80 INR 0.96 PTT (Actin FS) Sodium 139 Potassium 4.2 Chloride 105 Carbon Dioxide 27 Anion Gap 7 L BUN 18 Creatinine 1.2 H Creat Clearance w eGFR 52.75 Random Glucose 94 Calcium 9.5 Total Bilirubin 0.2 AST 20 ALT 27 Alkaline Phosphatase 163 H Total Protein 7.3 Albumin 3.5 Blood Type B POSITIVE Antibody Screen Negative 12/24/17 03:54 PT with INR INR PTT (Actin FS) 28.4 Sodium Potassium Chloride Carbon Dioxide Anion Gap BUN Creatinine Creat Clearance w eGFR Random Glucose Calcium Total Bilirubin AST ALT Alkaline Phosphatase Total Protein Albumin Blood Type Antibody Screen 12/24/17 03:54 RBC 4.24 D MCV 83.1 MCHC 32.5 RDW 14.1 MPV 6.7 L Neutrophils % 85.0 H Lymphocytes % 9.6 D Monocytes % 4.6 Eosinophils % 0.2 Basophils % 0.6 - Medications Given in the ED: ED Medications Discontinued Medications Generic Name Dose Route Start Last Admin Trade Name Wong PRN Reason Stop Dose Admin Acetaminophen 1,000 mg 12/24/17 04:07 12/24/17 04:21 Ofirmev Injection - IVPB 12/24/17 04:08 1,000 mg ONCE ONE Administration Famotidine/Sodium Chloride 20 mg in 50 mls @ 100 mls/hr 12/24/17 03:47 05:15 Pepcid 20 Mg Premixed Ivpb - IVPB 12/24/17 04:16 100 mls/hr ONCE ONE Administration Lactulose 20 gm 12/24/17 04:35 12/24/17 05:15 Cephulac (Oral Use) PO 12/24/17 04:36 20 gm ONCE ONE Administration Sodium Chloride 1,000 ml 12/24/17 03:29 12/24/17 04:01 Normal Saline - IV 12/24/17 03:30 1,000 ml ONCE ONE Administration <Jorge Pandya - Last Filed: 12/24/17 12:25> Medical Decision Making - Medical Decision Making 12/24/17 08:31 Received signout on this healthy 32-year-old female postop day 16 of otherwise uncomfortable. who was doing well, having normal bowel movements, and only residual vaginal bleeding presented with acute onset of lower abdominal pain that began around midnight, found to be tender on exam with white blood cell count of 16. Plan was to check CAT scan and reassess. Abdominal x-ray had no acute findings, CTAP pending. 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 Awaiting CAT scan to rule out postoperative complication or other infectious pathology. 12/24/17 11:02 A 2 mm obstructing left UVJ stone without other compensating collection or free fluid. Patient remains much more comfortable, abdominal exam improved after urinating. We'll send urinalysis, discharge +/- antibiotics if needed. She does not want to wait for the results despite understanding full spectrum of risk. Of note, there was some miscommunication with the CT read (initial xray read under CT, causing some delay, which upset the patient but this was discussed, explained, and rectified). 12/24/17 11:34 UA returned with elevated wbc and 2+ leuks. Possible UTI + small distal stone + leukocytosis. Given resolution of sxs and only slight hydro, likely not complete obstruction and stone likely passed. Will need antibiotics and strict return precautions. Told would need emergent Urology and IV abx if symptoms do not improve. 12/24/17 12:23 Pt called and informed of abx prescription sent to her pharmacy, of the importance/concerns regarding an infection in the setting of possible stone, and of strict return criteria. She said she feels well, pain is gone, and she will take the abx. <Jorge Pandya - Last Filed: 12/24/17 12:25> *DC/Admit/Observation/Transfer - Attestations Scribe Attestion: 12/24/17 10:46 Documentation prepared by Tish Edmond, acting as medical assistant secretary for Jorge Pandya MD. <Tish Edmond - Last Filed: 12/24/17 10:44> <Jorge Pandya - Last Filed: 12/24/17 12:25> Diagnosis at time of Disposition: Renal colic on left side - Discharge Dispostion Disposition: HOME Condition at time of disposition: Improved - Prescriptions Prescriptions: Cephalexin Monohydrate [Keflex -] 500 mg PO Q8H #30 capsule - Referrals Referrals: Keturah Mcgarry MD [Primary Care Provider] - Kojo Cox MD [Staff Physician] - - Patient Instructions Printed Discharge Instructions: DI for Kidney Stones Additional Instructions: Activity as tolerated. Stay hydrated. A CAT scan shows a kidney stone on the left side, which is the cause of your pain. This should pass on its own as it is small (3mm). Tylenol 1000 mg every 8 hours as needed for pain. Continue your medications as previously prescribed by your physician. You should follow up with your primary doctor and a urologist (consider calling Dr. Cox) as soon as possible regarding today's emergency department visit. Return to the emergency department for any new or concerning symptoms, particularly persistent or intolerable pain, fever/chills, difficulty urinating , flank pain, increased vaginal bleeding or discharge. - Post Discharge Activity
[2017-12-24 11:12] VITALS: BP 118/74; PULSE 78; TEMP 98.6
[2017-12-24 11:24] LABS: URINE APPEARANCE CLEAR; URINE BILIRUBIN NEGATIVE (NEGATIVE); URINE BLOOD 3+ (NEGATIVE); URINE COLOR STRAW; URINE GLUCOSE (UA) NEGATIVE (NEGATIVE); URINE KETONE NEGATIVE (NEGATIVE); URINE NITRITE NEGATIVE (NEGATIVE); URINE PROTEIN NEGATIVE (NEGATIVE); URINE UROBILINOGEN NEGATIVE mg/dL (0.2-1.0)
[2017-12-24 11:28] LABS: URINE LEUK ESTERASE 2+ (NEGATIVE)
[2017-12-24 11:31] LABS: URINE MUCUS RARE
== END 2017-12-24 11:12 | disposition home or self-care (01) ==
LOC: JER 02:49
PROC: 3E033GC Introduction of Other Therapeutic Substance into Peripheral Vein, Percutaneous Approach (ICD-10-PCS; principal; 2017-12-24)
PROC: 3E033NZ Introduction of Analgesics, Hypnotics, Sedatives into Peripheral Vein, Percutaneous Approach (ICD-10-PCS; 2017-12-24)
DX: O90.89 Other complications of the puerperium, not elsewhere classified (principal); N28.89 Other specified disorders of kidney and ureter; N13.2 Hydronephrosis with renal and ureteral calculous obstruction
CPT/HCPCS: 36415; 74019-TC; 74176-TC; 80053; 81003; 81015; 85025; 85610; 85730; 86850; 86900; 86901; 99284-25

== ENCOUNTER 2021-02-09 04:50 | Inpatient (IN) | payer BC ==
[2021-02-09 06:10] LABS: BASO % 0.3 % (0-2.0); EOS % 0.7 % (0-4.5); HEMATOCRIT 34.1 % (32.4-45.2); HEMOGLOBIN 11.6 GM/dL (10.7-15.3); LYMPH % 20.3 % (8-40); MCH 26.5 pg (25.7-33.7); MCHC 33.9 g/dl (32.0-36.0); MEAN CELL VOLUME 78.2 fl (80-96); MEAN PLT VOLUME 7.6 fl (7.5-11.1); MONO % 6.8 % (3.8-10.2); NEUT % 71.9 % (42.8-82.8); PLATELET COUNT 380 K/MM3 (134-434); RBC 4.37 M/mm3 (3.60-5.2); RDW 15.2 % (11.6-15.6)
[2021-02-09 06:17] LABS: INR 0.88 (0.83-1.09); PROTHROMBIN TIME (PATIENT) 10.7 SEC (9.7-13.0)
[2021-02-09 06:20] LABS: ACTIVATED PTT 23.8 SECONDS (25.2-36.5)
[2021-02-09 06:29] LABS: POTASSIUM 4.2 mmol/L (3.5-5.1)
[2021-02-09 06:30] LABS: CALCIUM 9.5 mg/dL (8.5-10.1)
[2021-02-09 06:31] LABS: BLOOD UREA NITROGEN 11.8 mg/dL (7-18)
[2021-02-09 06:34] LABS: CREATININE 0.7 mg/dL (0.55-1.3)
[2021-02-09 06:40] VITALS: BMI 28.3
[2021-02-09] MEDS ORDERED: ELECTROLYTE-148 SOLN 1,000 ML IV SCH (07:38)
[2021-02-09] MEDS ORDERED: PCA PUMP NR ONE (07:46)
[2021-02-09] MEDS ORDERED: FENTANYL/BUPIVACAINE/NS/PF - PCEA - 50 ML DISP.SYRIN EP ONE ×3 (07:46→15:15)
[2021-02-09] MEDS: FENTANYL/BUPIVACAINE/NS/PF - PCEA - 50 ML DISP.SYRIN EP SCH ×3 (08:05→15:20)
[2021-02-09] MEDS ORDERED: NALOXONE HCL 0.4 MG/ML VIAL IVPUSH PRN (08:52)
[2021-02-09] MEDS: ELECTROLYTE-148 SOLN 1,000 ML IV SCH ×2 (09:30→13:11)
[2021-02-09] MEDS ORDERED: BUPIVACAINE HCL/PF 0.25% (2.5MG/ML) 10 ML VIAL ONE ×2 (13:26→15:50)
[2021-02-09] MEDS ORDERED: OXYTOCIN 30 UNITS in 0.9% NS 30 UNIT/500 ML INFUS.BAG IVPB SCH (16:45)
[2021-02-09] MEDS ORDERED: LIDO 2%/EPI 1:200000 PRESRVFRE (20 ML SDVIAL) ONE (18:06)
[2021-02-09] MEDS ORDERED: MIDAZOLAM HCL 2 MG/2 ML SINGLE DOSE VIAL ONE (18:23)
[2021-02-09] MEDS ORDERED: ONDANSETRON 4 MG/2 ML VIAL IVPUSH PRN (18:41)
[2021-02-09] MEDS ORDERED: OXYTOCIN 20 UNITS in 0.9% NS 20 UNIT/1,000 ML INFUS.BAG IV ONE (19:08)
[2021-02-09 19:12] LABS: CORD HCO3 23.1 mmHg (20-29); CORD PCO2 91.4 mmHg (30-78)
[2021-02-09 19:15] LABS: CORD BASE EXCESS -10.4 mmol/L (0-2); CORD HCO3 19.8 mmHg (20-29); CORD PCO2 59.7 mmHg (30-78); CORD pH 7.139 (7.14-7.44)
[2021-02-09] MEDS: OXYTOCIN 20 UNITS in 0.9% NS 20 UNIT/1,000 ML INFUS.BAG IV SCH (19:15)
[2021-02-09] MEDS ORDERED: ONDANSETRON 4 MG/2 ML VIAL ONE ×2 (19:20→19:23)
[2021-02-09] MEDS ORDERED: BENZOCAINE 28 GM HEMORRHOIDAL OINTMENT TP PRN (19:31)
[2021-02-09] MEDS ORDERED: oxyCODONE HCL 5 MG TABLET PO PRN (19:31)
[2021-02-09] MEDS ORDERED: IBUPROFEN 800 MG/8 ML IJ IVPB PRN (19:31)
[2021-02-09] MEDS ORDERED: IBUPROFEN 600 MG TABLET (FP) PO PRN (19:31)
[2021-02-09] MEDS ORDERED: BENZOCAINE 20% 57 GM BOTTLE TP PRN (19:31)
[2021-02-09] MEDS ORDERED: WITCH HAZEL 50% (TUCKS) 40 PAD/JAR PAD TP PRN (19:31)
[2021-02-09] MEDS ORDERED: METHYLERGONOVINE MALEATE 0.2 MG/1 ML AMP IM PRN (19:31)
[2021-02-10 07:58] LABS: BASO % 0.1 % (0-2.0); EOS % 0.1 % (0-4.5); HEMATOCRIT 24.8 % (32.4-45.2); HEMOGLOBIN 7.9 GM/dL (10.7-15.3); LYMPH % 7.5 % (8-40); MCH 25.4 pg (25.7-33.7); MCHC 31.9 g/dl (32.0-36.0); MEAN CELL VOLUME 79.7 fl (80-96); MEAN PLT VOLUME 7.6 fl (7.5-11.1); MONO % 6.1 % (3.8-10.2); NEUT % 86.2 % (42.8-82.8); PLATELET COUNT 272 K/MM3 (134-434); RBC 3.11 M/mm3 (3.60-5.2); RDW 15.5 % (11.6-15.6); WHITE BLOOD COUNT 15.9 K/mm3 (4.0-10.0)
[2021-02-10] MEDS: PRENATAL VITAMINS W/ FOLIC ACID TABLET (FP) PO SCH (09:32)
[2021-02-10] MEDS: ACETAMINOPHEN 325 MG TABLET (FP) PO PRN ×2 (12:15→21:00)
[2021-02-10] MEDS: IBUPROFEN 600 MG TABLET (FP) PO PRN ×2 (12:15→21:00)
[2021-02-10] MEDS ORDERED: BISACODYL 10 MG SUPP.RECT RC PRN (19:31)
[2021-02-10] MEDS: SENNOSIDES/DOCUSATE COMBO (SENNA PLUS) TABLET (UD) PO PRN (21:00)
[2021-02-10] MEDS: SIMETHICONE 80 MG TAB.CHEW (FP) PO PRN (22:55)
[2021-02-11] MEDS: oxyCODONE HCL 5 MG TABLET PO PRN ×2 (04:02→19:27)
[2021-02-11] MEDS: ACETAMINOPHEN 325 MG TABLET (FP) PO PRN ×2 (04:03→19:28)
[2021-02-11] MEDS: FENTANYL/BUPIVACAINE/NS/PF - PCEA - 50 ML DISP.SYRIN EP SCH ×2 (07:08→10:44)
[2021-02-11] MEDS: ELECTROLYTE-148 SOLN 1,000 ML IV SCH ×2 (07:09→10:44)
[2021-02-11] MEDS: OXYTOCIN 20 UNITS in 0.9% NS 20 UNIT/1,000 ML INFUS.BAG IV SCH (07:17)
[2021-02-11 08:14] LABS: POC NITRAZINE POS
[2021-02-11] MEDS: SIMETHICONE 80 MG TAB.CHEW (FP) PO PRN ×3 (10:57→19:29)
[2021-02-11] MEDS: PRENATAL VITAMINS W/ FOLIC ACID TABLET (FP) PO SCH (10:57)
[2021-02-11] MEDS: SENNOSIDES/DOCUSATE COMBO (SENNA PLUS) TABLET (UD) PO PRN (19:28)
[2021-02-12] MEDS: ACETAMINOPHEN 325 MG TABLET (FP) PO PRN ×2 (04:52→09:58)
[2021-02-12] MEDS: SIMETHICONE 80 MG TAB.CHEW (FP) PO PRN ×2 (04:53→09:58)
[2021-02-12] MEDS: oxyCODONE HCL 5 MG TABLET PO PRN (04:53)
[2021-02-12 09:09] LABS: BASO % 0.3 % (0-2.0); EOS % 0.6 % (0-4.5); HEMATOCRIT 26.6 % (32.4-45.2); HEMOGLOBIN 8.5 GM/dL (10.7-15.3); MCH 25.7 pg (25.7-33.7); MCHC 31.9 g/dl (32.0-36.0); MEAN CELL VOLUME 80.4 fl (80-96); MEAN PLT VOLUME 7.7 fl (7.5-11.1); MONO % 3.3 % (3.8-10.2); NEUT % 82.8 % (42.8-82.8); PLATELET COUNT 355 K/MM3 (134-434); RBC 3.31 M/mm3 (3.60-5.2); RDW 15.3 % (11.6-15.6); WHITE BLOOD COUNT 14.5 K/mm3 (4.0-10.0)
[2021-02-12] MEDS: PRENATAL VITAMINS W/ FOLIC ACID TABLET (FP) PO SCH (09:58)
[2021-02-12] MEDS: IBUPROFEN 600 MG TABLET (FP) PO PRN (09:59)
[2021-02-12 12:15] VITALS: BP 106/63; PULSE 72; TEMP 97.6
== END 2021-02-12 13:55 | disposition home or self-care (01) | DRG 788 ==
LOC: JLDR 04:50 → J3W 22:00
PROVIDERS: ADMIT Obstetrics & Gynecology; ATTEND Obstetrics & Gynecology
PROC: 10D00Z1 Extraction of Products of Conception, Low, Open Approach (ICD-10-PCS; principal; 2021-02-09)
DX: O71.1 Rupture of uterus during labor (principal); O66.41 Failed attempted vaginal birth after previous cesarean delivery; O76 Abnormality in fetal heart rate and rhythm complicating labor and delivery; O34.219 Maternal care for unspecified type scar from previous cesarean delivery; O16.5 Unspecified maternal hypertension, complicating the puerperium; O90.81 Anemia of the puerperium; D64.9 Anemia, unspecified; Z3A.39 39 weeks gestation of pregnancy; Z37.0 Single live birth
CPT/HCPCS: 36415; 36600; 80048; 82803; 83986-QW; 85025; 85610; 85730; 86780; 86850; 86900; 86901; 88307-TC; C9803; U0003